=== PATIENT | male | born 1980 | race Caucasian/White ===

== ENCOUNTER 2018-02-02 22:15 | Emergency (ER) | payer OTHER ==
[~2018-02-02] VITALS: Ht 180.3 cm; Wt 86.2 kg
[2018-02-03] MEDS ORDERED: KEFLEX500 M1 PO (00:05)
[2018-02-03] MEDS ORDERED: IBUPROFEN 800800 M1 PO (00:05)
[2018-02-03] MEDS ORDERED: NORCO 5-325 TA1 EACH PO (00:05)
[2018-02-03 00:13] VITALS: BP 132/96
== END 2018-02-03 00:13 | disposition home or self-care (01) ==
LOC: M.ERS 22:15
DX: S61.210A Laceration without foreign body of right index finger without damage to nail, initial encounter (principal); W26.8XXA Contact with other sharp object(s), not elsewhere classified, initial encounter; Y93.89 Activity, other specified; Y92.89 Other specified places as the place of occurrence of the external cause; Y99.8 Other external cause status